=== PATIENT | female | born 1965 | race Caucasian/White ===

== ENCOUNTER 2018-02-06 13:37 | Emergency (ER) | payer OTHER ==
[~2018-02-06] VITALS: Ht 167.6 cm; Wt 81.5 kg
[2018-02-06 14:02] VITALS: BP 190/102
[2018-02-06] MEDS ORDERED: KETOROLAC 30 MG/1 ML ONE (14:36)
[2018-02-06] MEDS ORDERED: KETOROLAC 30 MG/1 ML IM ONE (15:00)
== END 2018-02-06 14:42 | disposition home or self-care (01) ==
LOC: ED 14:02
DX: K08.89 Other specified disorders of teeth and supporting structures (principal)
CPT/HCPCS: 96372; 99283; J1885